=== PATIENT | male | born 1970 | race Caucasian/White ===

== ENCOUNTER 2021-04-10 14:32 | Emergency (ER) | payer MEDICARE, OTHER ==
[2021-04-10 15:56] LABS: BASOPHIL 0.3 % (0-2); EOSINOPHIL 1.4 % (0-5); HCT 40.3 % (42.0-52.0); HGB 13.5 g/dl (13.2-18.0); LYMPHOCYTE 20.5 % (15-48); MCH 28.7 pg (25.0-31.0); MCHC 33.5 g/dL (32.0-36.0); MCV 85.7 fL (78.0-100.0); MONOCYTE 9.7 % (0-12); MPV 11.2 fL (6.0-9.5); NRBC 0; PLT 224 K/uL (150-400); RDW 12.8 % (11.5-14.0); WBC 7.8 K/uL (4.0-10.5)
[2021-04-10 16:19] LABS: BUN/CREAT RATIO (CALC) 10.8 RATIO; CREATININE 0.83 mg/dL (0.67-1.17); POTASSIUM 3.8 mmol/L (3.5-5.1)
[2021-04-10 16:34] LABS: CORONAVIRUS 2019 SARS-COV-2 NEGATIVE (NEGATIVE); INFLUENZA A NAA NEGATIVE (NEGATIVE)
[2021-04-10] MEDS ORDERED: MEDROL 4MG DOSEP4 MG PO (17:13)
[2021-04-10] MEDS ORDERED: ZPAK PO (17:13)
== END 2021-04-10 17:41 | disposition home or self-care (01) ==
LOC: FER 14:32
PROVIDERS: Nurse Practitioner Family
DX: J20.9 Acute bronchitis, unspecified (principal); I10 Essential (primary) hypertension; Z20.822 Contact with and (suspected) exposure to COVID-19; Z88.0 Allergy status to penicillin
CPT/HCPCS: 36415; 71045; 80048; 85025; J1100; J7030; U0002